=== PATIENT | female | born 1980 | race Caucasian/White ===

== ENCOUNTER → 2016-11-30 | Outpatient (CLI) | payer BC ==
[~2016-11-30] MED LIST: BCPILLS PO; CHOL1TAB42 PO; CIPR1TAB11 PO; ONE A DAY VIT
--- NOTE | 2016-11-30 16:53 | DIAGNOSTIC IMAGING REPORT ---
[facility]UB CLINICAL HISTORY: N20.0 Nephrolithiasis COMPARISON STUDY: 03/07/2015 FINDINGS: There are no transition zones indicate bowel obstruction. There is mild fecal retention within the transverse and right colon.. The renal shadows are partially obscured by overlying bowel gas and fecal material. No renal calculi are visualized. No ureteral calculi are evident. There is a stable left pelvic basin calcification likely resulting a phlebolith. IMPRESSION: 1. No urinary tract calculi identified 2. Mild fecal retention. No evidence of bowel obstruction. Electronically signed by: Owen Sexton M.D. 11/30/2016 4:52 PM Dictated Date/Time: 11/30/2016 4:51 PM
== END | disposition home or self-care (01) ==
LOC: C.RAD 16:28
PROVIDERS: ATTEND Urology
DX: N20.0 Calculus of kidney (principal)

== ENCOUNTER → 2016-12-12 | Outpatient (CLI) | payer BC | END | disposition home or self-care (01) | LOC: C.PAPS 11:48 | PROVIDERS: ATTEND Obstetrics & Gynecology | DX: Z01.419 Encounter for gynecological examination (general) (routine) without abnormal findings (principal); Z30.011 Encounter for initial prescription of contraceptive pills ==